=== PATIENT | male | born 1985 | race Caucasian/White ===

== ENCOUNTER 2018-12-27 19:36 | Emergency (ER) | payer MEDICAID ==
[~2018-12-27] VITALS: Ht 172.7 cm; Wt 68.0 kg
[2018-12-27 21:51] LABS: CLARITY,URINE SLIGHTLY CLOUDY (Clear); COLOR,URINE YELLOW (Yellow); GLUCOSE, URINE 250 mg/dl (Neg); KETONES,URINE NEGATIVE (Neg); LEUKOCYTE ESTERASE ,URINE NEGATIVE (Neg); NITRITES, URINE NEGATIVE (Neg); OCCULT BLOOD,URINE MODERATE (Neg); PH,URINE 5.5 (4.8-8.0); PROTEIN,URINE 30 mg/dl (Neg); UROBILINOGEN,URINE 0.2 E.U/dL (0.2-1.0)
--- NOTE | 2018-12-27 21:54 | NUR ---
ULTRASOUND IN ROOM
[2018-12-27 21:57] LABS: UA COLLECTION TYPE CLN CATCH MIDSTREAM
[2018-12-27 21:58] LABS: BACTERIA,URINE FEW /HPF (Neg); SQUAMOUS EPITHELIAL CELL,UR FEW /LPF (FEW); WBC,URINE 50-100 /HPF (0-4)
[2018-12-27 21:59] LABS: MUCUS STRANDS FEW /LPF (Neg); WBC CLUMPS,URINE MODERATE /HPF (NEGATIVE)
[2018-12-27] MEDS ORDERED: DOXY100C43 PO (22:38)
[2018-12-27] MEDS ORDERED: DOXYCYCLINE 100MG CAPSULE PO STA (22:38)
[2018-12-27] MEDS ORDERED: CefTRIAXone 250MG IM Kit w/LIDOcaine IM ONE (22:40)
[2018-12-27 23:05] VITALS: BP 125/71
== END 2018-12-27 23:08 | disposition home or self-care (01) ==
LOC: ER 19:37
DX: N45.1 Epididymitis (principal)
CPT/HCPCS: 76870; 81001; 87088; 96372; 99284; J0696

== ENCOUNTER 2019-04-26 09:28 | Observation (INO) | payer MEDICAID ==
[~2019-04-26] VITALS: Ht 172.7 cm; Wt 65.9 kg
[2019-04-26] MEDS ORDERED: piperacillin/tazo 3.375gm/50ml 50 ML IV ONE (09:40)
[2019-04-26] MEDS ORDERED: normal saline 1000ML IV soln IV ONE (09:40)
[2019-04-26] MEDS ORDERED: morphine 4 MG/ML inj SYRINge IV ONE (09:40)
[2019-04-26 10:15] LABS: BASOPHILS # (AUTO) 0.1 X10'3 (0-0.2); BASOPHILS % (AUTO) 0.5 % (0-1); EOSINOPHILS # (AUTO) 0.4 X10'3 (0-0.9); EOSINOPHILS % (AUTO) 3.3 % (0-6); HEMATOCRIT 38.7 % (42.0-52.0); LYMPHOCYTES # (AUTO) 2.4 X10'3 (1.1-4.8); LYMPHOCYTES % (AUTO) 17.7 % (21-51); MEAN CORPUSCULAR HEMOGLOBIN 29.6 PG (27.0-31.0); MEAN CORPUSCULAR HGB CONC 33.5 g/dL (33.0-36.5); MEAN CORPUSCULAR VOLUME 88.3 FL (78-98); MEAN PLATELET VOLUME 7.4 FL (7.4-10.4); MONOCYTES % (AUTO) 7.4 % (2-12); NEUTROPHILS # (AUTO) 9.6 X10'3 (1.8-7.7); NEUTROPHILS % (AUTO) 71.1 % (42-75); PLATELET COUNT 252 X10'3 (140-440); RED BLOOD COUNT 4.38 X10'6 (4.70-6.10); RED CELL DISTRIBUTION WIDTH 13.5 % (11.5-14.5); WHITE BLOOD COUNT 13.5 X10'3 (4.5-11.0)
[2019-04-26 10:27] LABS: ALANINE AMINOTRANSFERASE 20 U/L (12-78); ALBUMIN 3.5 G/DL (3.4-5.0); ALBUMIN/GLOBULIN RATIO 0.9 (1.1-1.5); ALKALINE PHOSPHATASE 67 IU/L (46-116); ANION GAP 6 (8-16); ASPARTATE AMINO TRANSFERASE 10 U/L (10-37); BILIRUBIN,TOTAL 0.3 MG/DL (0.1-1.0); BLOOD UREA NITROGEN 15 MG/DL (7-18); BUN/CREATININE RATIO 18.3 (5.4-32.0); CALCIUM 8.7 MG/DL (8.5-10.1); CHLORIDE 99 MMOL/L (99-107); CREATININE 0.82 MG/DL (0.60-1.10); GLUCOSE 87 MG/DL (70-104); POTASSIUM 3.5 MMOL/L (3.5-5.1); SODIUM 137 MMOL/L (135-145); TOTAL CARBON DIOXIDE 31.6 MMOL/L (24-32); TOTAL PROTEIN 7.5 G/DL (6.4-8.2); eGFR > 90 ML/MIN
[2019-04-26] MEDS ORDERED: LIDOcaine 1% w/epiNEPHrine 1:200,000 30ml vial IM ONE (10:40)
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
[2019-04-26] MEDS: normal saline 1000ml 1,000 ML IV SCH (11:33)
[2019-04-26] MEDS ORDERED: acetaminophen 325mg tablet PO PRN ×2 (11:35)
[2019-04-26] MEDS ORDERED: mag hydrox/Alum hydrox/simeth 30ml oral suspension PO PRN (11:35)
[2019-04-26] MEDS ORDERED: potassium Cl 20 mEq SR tablet PO PRN ×2 (11:35)
[2019-04-26] MEDS: K and/or MAG REPLACEMENT MC SCH (11:35)
[2019-04-26] MEDS ORDERED: magnesium 4gm in 100ml NS 100 ML IV PRN (11:35)
[2019-04-26] MEDS ORDERED: ondansetron/PF 4mg/2ml inj IV PRN (11:35)
[2019-04-26] MEDS ORDERED: HYDROcodone/acetaminophen 5mg/325mg tablet PO PRN (11:35)
[2019-04-26] MEDS ORDERED: potassium CL 10mEq/100ml bag 100 ML IV PRN (11:35)
[2019-04-26] MEDS ORDERED: magnesium 2GM in 50ml NS 50 ML IV PRN (11:35)
[2019-04-26] MEDS ORDERED: magnesium Cl slow-release 64mg tablet PO PRN (11:35)
[2019-04-26] MEDS ORDERED: potassium Cl 40MEQ/NS 500ml 500 ML IV PRN (11:35)
[2019-04-26] MEDS ORDERED: HYDROcodone/acetaminophen 10/325mg tab PO PRN (11:35)
[2019-04-26] MEDS ORDERED: magnesium hydroxide 30ml (MOM) UD suspension PO PRN (11:35)
--- NOTE | 2019-04-26 11:50 | NUR ---
LAB AT BEDSIDE DRAWING 1ST SET OF CULTURES AND LACTIC
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
[2019-04-26] MEDS ORDERED: NO HOME MEDS ×2 (12:20→12:21)
[2019-04-26] MEDS ORDERED: iohexol 300mg/ml 100ml inj. ONE (12:46)
[2019-04-26 13:14] LABS: HEMOGLOBIN A1C 5.7 % (4.5-6.2)
[2019-04-26 13:54] VITALS: BP 124/91
[2019-04-26 14:41] LABS: URINE AMPHETAMINE SCREEN POSITIVE (Neg); URINE BARBITUATE SCREEN NEGATIVE (Neg); URINE BENZODIAZEPINES SCREEN NEGATIVE (Neg); URINE CANNABINOID SCREEN NEGATIVE (Neg); URINE COCAINE SCREEN NEGATIVE (Neg); URINE METHADONE SCREEN NEGATIVE (Neg); URINE OPIATE SCREEN POSITIVE (Neg); URINE PHENCYCLIDINE SCREEN NEGATIVE (Neg)
[2019-04-26] MEDS ORDERED: tetanus & diphtheria toxoid (Td) vaccine 0.5ml IMVAC ONE (14:45)
--- NOTE | 2019-04-26 14:52 | NUR ---
Sheriff Torres at the bedside with patient. Tox screen completed results are positive for meth.
[2019-04-26] MEDS: piperacillin/tazo 3.375gm/50ml 50 ML IV SCH (16:10)
--- NOTE | 2019-04-26 18:08 | NUR ---
Problems reprioritized. Patient report given, questions answered & plan of care reviewed with Jorge A TROTTER.
--- NOTE | 2019-04-26 18:31 | NUR ---
Patient in room [facility]. I have received report from Anahy TROTTER and had the opportunity to ask questions and assume patient care.
[2019-04-26] MEDS ORDERED: TETanus/Pertussis (Acell)/Diphther VAC/PF (Tdap-Adult) 0.5ml syringe IMVAC ONE (19:25)
[2019-04-26 20:00] VITALS: BP 120/85
[2019-04-26] MEDS ORDERED: temazepam 15mg capsule PO PRN (21:00)
[2019-04-27] VITALS: BP 122/85
[2019-04-27] MEDS: piperacillin/tazo 3.375gm/50ml 50 ML IV SCH ×2 (00:18→07:30)
[2019-04-27 04:37] LABS: BASOPHILS # (AUTO) 0.1 X10'3 (0-0.2); BASOPHILS % (AUTO) 0.4 % (0-1); EOSINOPHILS # (AUTO) 0.5 X10'3 (0-0.9); EOSINOPHILS % (AUTO) 3.8 % (0-6); HEMATOCRIT 37.3 % (42.0-52.0); HEMOGLOBIN 12.2 g/dl (14.0-17.9); LYMPHOCYTES # (AUTO) 1.9 X10'3 (1.1-4.8); LYMPHOCYTES % (AUTO) 14.7 % (21-51); MEAN CORPUSCULAR HEMOGLOBIN 29.2 PG (27.0-31.0); MEAN CORPUSCULAR HGB CONC 32.7 g/dL (33.0-36.5); MEAN CORPUSCULAR VOLUME 89.1 FL (78-98); MEAN PLATELET VOLUME 7.6 FL (7.4-10.4); MONOCYTES # (AUTO) 1.1 X10'3 (0-0.9); NEUTROPHILS # (AUTO) 9.5 X10'3 (1.8-7.7); NEUTROPHILS % (AUTO) 73.1 % (42-75); PLATELET COUNT 226 X10'3 (140-440); RED BLOOD COUNT 4.19 X10'6 (4.70-6.10); RED CELL DISTRIBUTION WIDTH 13.3 % (11.5-14.5); WHITE BLOOD COUNT 13.1 X10'3 (4.5-11.0)
[2019-04-27 04:55] LABS: ALBUMIN 2.9 G/DL (3.4-5.0); ANION GAP 5 (8-16); BLOOD UREA NITROGEN 10 MG/DL (7-18); BUN/CREATININE RATIO 13.5 (5.4-32.0); CALCIUM 8.6 MG/DL (8.5-10.1); CHLORIDE 104 MMOL/L (99-107); CREATININE 0.74 MG/DL (0.60-1.10); GLUCOSE 113 MG/DL (70-104); MAGNESIUM 1.9 MG/DL (1.5-2.4); POTASSIUM 3.9 MMOL/L (3.5-5.1); SODIUM 138 MMOL/L (135-145); TOTAL CARBON DIOXIDE 29.2 MMOL/L (24-32); eGFR > 90 ML/MIN
--- NOTE | 2019-04-27 06:10 | NUR ---
Problems reprioritized. Patient report given, questions answered & plan of care reviewed with Anahy TROTTER.
--- NOTE | 2019-04-27 06:48 | NUR ---
Patient in room [facility]. I have received report from Jorge A TROTTER and had the opportunity to ask questions and assume patient care.
--- NOTE | 2019-04-27 06:54 | NUR ---
Patient refused VS this morning.
[2019-04-27] MEDS: normal saline 1000ml 1,000 ML IV SCH ×2 (07:31→07:33)
[2019-04-27] MEDS: K and/or MAG REPLACEMENT MC SCH (08:26)
[2019-04-27] MEDS ORDERED: AMOX-422 PO (11:03)
--- NOTE | 2019-04-27 12:03 | NUR ---
Patient discharged on nursing end. All education completed, informed patient how to find out how to obtain a MD to follow up with after discharge, medical card has a number to call for a list of MDs. Pamphlet given on the [facility] and to get to the location by 7AM to sign up. Patient given lip ointment and triple antibiotic to apply to his zit on lip. [facility] bedside service to deliver medication to bedside, educated patient to take medication to its fullest and not to skip a dose. Eduction paper work given to patient in packet. Patient lives with girlfriend in a trailer.
--- NOTE | 2019-04-27 13:10 | NUR ---
Medications delivered to patient by [facility] bedside service. Patient ready for discharge.
--- NOTE | 2019-04-27 13:16 | NUR ---
No discharge pictures taken, patients pictures taken within 24 hours of discharge. Patient refused WC, walks independently and tolerates well. No SOB, VSS. A&Ox4.
== END 2019-04-27 13:14 | disposition home or self-care (01) ==
LOC: ER 09:29 → SUR 3N 13:43 → CMPBEDREQ 19:48
PROVIDERS: ADMIT Family Medicine; ATTEND Family Medicine
DX: S00.83XA Contusion of other part of head, initial encounter (principal); F15.10 Other stimulant abuse, uncomplicated; K13.0 Diseases of lips; F17.200 Nicotine dependence, unspecified, uncomplicated; Y04.0XXA Assault by unarmed brawl or fight, initial encounter
CPT/HCPCS: 36415; 70487; 80048; 80053; 80305; 83036; 83605; 83735; 85025; 87040; 87081; 90471; 93005; 96365; 96366; 96375; 99284; G0378; J2270; J2543; J7030; Q9967

== ENCOUNTER 2022-01-08 16:09 | Emergency (ER) | payer BC, MEDICAID ==
[~2022-01-08] VITALS: Ht 175.3 cm; Wt 70.5 kg
[2022-01-08 16:13] VITALS: BP 127/89
[2022-01-08] MEDS ORDERED: CefTRIAXone 500MG IM Kit w/LIDOcaine IM ONE (16:15)
[2022-01-08] MEDS ORDERED: azithromycin 250mg tablet PO ONE (16:15)
[2022-01-08 16:39] LABS: COLOR,URINE ORANGE (Yellow); UA COLLECTION TYPE CLN CATCH MIDSTREAM
[2022-01-08 16:40] LABS: CLARITY,URINE CLOUDY (Clear)
[2022-01-08 16:46] LABS: RBC,URINE TNTC /HPF (0-2); SQUAMOUS EPITHELIAL CELL,UR FEW /LPF (FEW); WBC,URINE TNTC /HPF (0-4)
[2022-01-08 16:47] LABS: BACTERIA,URINE 1+ /HPF (Neg)
== END 2022-01-08 17:20 | disposition home or self-care (01) ==
LOC: ER 16:10
DX: R30.0 Dysuria (principal); R36.9 Urethral discharge, unspecified; Z86.19 Personal history of other infectious and parasitic diseases
CPT/HCPCS: 36415; 81001; 87088; 87491; 87591; 96372; 99283; J0696